=== PATIENT | female | born 1960 | race Caucasian/White ===

== ENCOUNTER 2016-07-06 17:31 | Emergency (ER) | payer SELFPAY ==
[~2016-07-06] VITALS: Ht 170.2 cm; Wt 68.0 kg
[~2016-07-06 17:31] MED LIST: HYDR-971 PO; PRED20TA PO; SULF1TAB24 PO
[2016-07-06 18:18] VITALS: BP 99/61
[2016-07-06] MEDS ORDERED: ONDANSETRON ODT 4 MG TAB.RAPDIS PO ONE (18:45)
[2016-07-06] MEDS ORDERED: ACETAMINOPHEN/CODEINE 300/30MG TABLET PO ONE (18:45)
--- NOTE | 2016-07-06 18:47 | PHYS DOC ---
Past Medical History Past Medical History: Diabetes-Type II, DVT Past Surgical History: Other Additional Past Surgical Histo: right lower arm amputation Alcohol Use: Sober Drug Use: None Adult General Chief Complaint Chief Complaint: EYE PROBLEMS HPI HPI Patient is a 56 year old female who presents with right lower eyelid swelling that began this morning as well as redness. Patient denies any fever. Denies any vision loss. She is also complaining of nausea vomiting and diarrhea since this morning, she states her roommate's son came from out of town with same symptoms. Patient denies any abdominal pain but she states she has cramping. Denies any hematemesis or melena. Review of Systems Review of Systems Constitutional: Denies fever or chills [] Eyes: Right lower eyelid swelling and redness HENT: Denies nasal congestion or sore throat [] Respiratory: Denies cough or shortness of breath [] Cardiovascular: No additional information not addressed in HPI [] GI: Nausea and vomiting and diarrhea] : Denies dysuria or hematuria [] Musculoskeletal: Denies back pain or joint pain [] Integument: Denies rash or skin lesions [] Neurologic: Denies headache, focal weakness or sensory changes [] Endocrine: Denies polyuria or polydipsia [] Current Medications Current Medications Current Medications Medications (Trade) Dose Ordered Sig/Mane Start Time Stop Time Status Last Admin Dose Admin Acetaminophen/ Codeine Phosphate (Tylenol #3) 1 tab 1X ONCE 07/06/16 18:45 07/06/16 18:46 DC Ondansetron HCl (Zofran Odt) 4 mg 1X ONCE 07/06/16 18:45 07/06/16 18:46 DC Allergies Allergies Allergies Coded Allergies Type Severity Reaction Last Updated Verified No Known Drug Allergies 01/23/16 No Physical Exam Physical Exam Constitutional: Well developed, well nourished, no acute distress, non-toxic appearance. [] HENT: Normocephalic, atraumatic, bilateral external ears normal, oropharynx moist, no oral exudates, nose normal. [] Eyes: PERRLA, EOMI, right lower eyelid medial aspect with a small stye, with redness around this stye and small amount of drainage noted around the stye. This no fluctuance in the stye Neck: Normal range of motion, no tenderness, supple, no stridor. [] Cardiovascular:Heart rate regular rhythm, no murmur [] Lungs & Thorax: Bilateral breath sounds clear to auscultation [] Abdomen: Bowel sounds normal, soft, no tenderness, no masses, no pulsatile masses. [] Skin: Warm, dry, no erythema, no rash. [] Back: No tenderness, no CVA tenderness. [] Extremities: No tenderness, no cyanosis, no clubbing, ROM intact, no edema. [] Neurologic: Alert and oriented X 3, normal motor function, normal sensory function, no focal deficits noted. [] Psychologic: Affect normal, judgement normal, mood normal. [] Current Patient Data Vital Signs Vital Signs Date Time Temp Pulse Resp B/P Pulse Ox O2 Delivery O2 Flow Rate FiO2 07/06/16 18:18 98.4 106 20 99/61 98 Room Air 98.4 EKG EKG [] Radiology/Procedures Radiology/Procedures [] Course & Med Decision Making Course & Med Decision Making Pertinent Labs and Imaging studies reviewed. (See chart for details) Patient is in the ED with a stye to the right lower eyelid as well as redness to the eyelid, discharged with erythromycin ointment. Instructed to keep the area clean and dry, warm compresses recommended to the stye. Patient also has nausea vomiting and diarrhea that is viral in nature, she states another house member has similar symptoms. She appears well otherwise. Her BP was 99/66, patient states her BP runs low chronically and her heart rate runs in the 100s. She was discharged with promethazine. Instructed to push fluids maintain good hand hygiene. Instructed to return to the ED for any concerning symptoms otherwise follow-up with her own PCP next week. Dragon Disclaimer Dragon Disclaimer This electronic medical record was generated, in whole or in part, using a voice recognition dictation system. Departure Departure Impression: Primary Impression: Nausea vomiting and diarrhea Additional Impression: Stye external Disposition: 01 HOME, SELF-CARE Condition: STABLE Referrals: NO PCP (PCP) Follow-up with your own doctor next week Patient Instructions: Diarrhea, Nausea and Vomiting, Sty Additional Instructions: You were seen for left eye sty. Please use the prescribed eye ointment as ordered. You diarrhea or vomiting up probably viral, maintain good hand hygiene , push fluids. Take the prescribed medicines as needed. Come back to the emergency room for any concerning symptoms otherwise follow-up with your doctor next week. Scripts Tramadol Hcl/Acetaminophen (Ultracet Tablet)1 Each Tablet1 Tab PO Q6HRS #30 TAB Prov:SURINDER OCAMPO APRN 07/06/16 Promethazine Hcl 25 Mg Tablet1 Tab PO PRN Q6HRS #20 TAB Prov:SURINDER OCAMPO APRN 07/06/16 Erythromycin Base (Erythromycin)3.5 Gm Oint...g.1 Avi EACHEYE Q4HRS W/A #3.5 GM Prov:SURINDER OCAMPO APRN 07/06/16 Problem Qualifiers Additional Impression: Stye external Laterality: right Eyelid: lower Qualified Code: H00.012 - Hordeolum externum right lower eyelid SURINDER OCAMPO APRN Jul 06, 2016 18:47
[2016-07-06] MEDS ORDERED: PROM25TA10 PO (18:54)
[2016-07-06] MEDS ORDERED: TRAM1TAB49 PO (18:54)
[2016-07-06] MEDS ORDERED: ERYT1OIN6 EACHEYE (18:54)
== END 2016-07-06 19:00 | disposition home or self-care (01) ==
LOC: ER 17:31
DX: H00.012 Hordeolum externum right lower eyelid (principal); R11.2 Nausea with vomiting, unspecified; R19.7 Diarrhea, unspecified; E11.9 Type 2 diabetes mellitus without complications; Z86.718 Personal history of other venous thrombosis and embolism; Z89.211 Acquired absence of right upper limb below elbow
CPT/HCPCS: 99283; Q0162

== ENCOUNTER 2016-07-11 11:11 | Emergency (ER) | payer SELFPAY ==
[~2016-07-11] VITALS: Ht 172.7 cm; Wt 68.0 kg
[~2016-07-11 11:11] MED LIST changes: +ERYT1OIN6 EACHEYE; +PROM25TA10 PO; +TRAM1TAB49 PO
[2016-07-11 11:45] VITALS: BP 126/61
--- NOTE | 2016-07-11 11:52 | PHYS DOC ---
Past Medical History Past Medical History: Diabetes-Type II, DVT Past Surgical History: Other Additional Past Surgical Histo: right lower arm amputation Alcohol Use: Sober Drug Use: None Adult General Chief Complaint Chief Complaint: EYE PROBLEMS HPI HPI Patient is a 56 year old female presents emergency Department today with complaint of ongoing right eye redness pain and swelling to the upper lid. Patient was seen here 5 days ago and prescribed erythromycin eye ointment. She states that a friend of hers during the prescriptions and then she was told the srivastava of the medication and it was cost prohibitive. Patient also has an additional complaint of atraumatic right ear pain. She states that she does use Q-tips. She denies any foreign objects or foreign object sensation in her ear. She denies any drainage from her ear. Patient states that the nausea and vomiting settled down and she has no concerns for that. Review of Systems Review of Systems Constitutional: Denies fever or chills [] Eyes: Denies change in visual acuity, redness, or eye pain [] HENT: Denies nasal congestion or sore throat [] Respiratory: Denies cough or shortness of breath [] Cardiovascular: No additional information not addressed in HPI [] GI: Denies abdominal pain, nausea, vomiting, bloody stools or diarrhea [] : Denies dysuria or hematuria [] Musculoskeletal: Denies back pain or joint pain [] Integument: Denies rash or skin lesions [] Neurologic: Denies headache, focal weakness or sensory changes [] Endocrine: Denies polyuria or polydipsia [] Allergies Allergies Allergies Coded Allergies Type Severity Reaction Last Updated Verified No Known Drug Allergies 01/23/16 No Physical Exam Physical Exam Constitutional: Well developed, well nourished, no acute distress, non-toxic appearance. HENT: Normocephalic, atraumatic, bilateral external ears normal, oropharynx moist, no oral exudates, nose normal. Right external ear canal is excoriated. There is no purulent drainage or swelling. Tympanic membrane is normal in appearance. There is no evidence of mastoiditis. Eyes: Right upper lid with obvious stye. There is mild surrounding erythema and swelling. EOMs are intact and 6 cardinal positions of gaze. Tear film is clear. Anterior chamber is deep, clear and quiet. Neck: Normal range of motion, no tenderness, supple, no stridor. [] Cardiovascular:Heart rate regular rhythm, no murmur [] Lungs & Thorax: Bilateral breath sounds clear to auscultation [] Abdomen: Bowel sounds normal, soft, no tenderness, no masses, no pulsatile masses. [] Skin: Warm, dry, no erythema, no rash. [] Back: No tenderness, no CVA tenderness. [] Extremities: No tenderness, no cyanosis, no clubbing, ROM intact, no edema. [] Neurologic: Alert and oriented X 3, normal motor function, normal sensory function, no focal deficits noted. [] Psychologic: Affect normal, judgement normal, mood normal. [] EKG EKG [] Radiology/Procedures Radiology/Procedures [] Course & Med Decision Making Course & Med Decision Making Patient requested a pain pill here she has not been known to have her ears filled due to cost. 50 mg tramadol tablets, which is what she was originally prescribed 5 days ago, was ordered for one tablet by mouth here. Dragon Disclaimer Dragon Disclaimer This electronic medical record was generated, in whole or in part, using a voice recognition dictation system. Departure Departure Impression: Primary Impression: Stye external Additional Impression: Otitis externa Disposition: HOME, SELF-CARE Condition: Referrals: NO PCP (PCP) Patient Instructions: Otitis Externa, [id number], Sty Additional Instructions: 1. You do not have an infection in your right ear. The right ear canal is irritated and inflamed. Do not insert anything into your right ear canal. The right eardrum is normal. 2. Be sure to get the medication filled and take it as prescribed. 3. Use the pamphlet that was provided to you for assistance in establishing follow-up care with a primary care doctor. Problem Qualifiers PAUL PRATHER Jul 11, 2016 11:52
[2016-07-11] MEDS ORDERED: TRAMADOL 50 MG TABLET. PO ONE (12:00)
== END 2016-07-11 12:05 | disposition home or self-care (01) ==
LOC: ER 11:11
DX: H00.011 Hordeolum externum right upper eyelid (principal); H60.91 Unspecified otitis externa, right ear; E11.9 Type 2 diabetes mellitus without complications; R11.2 Nausea with vomiting, unspecified; Z86.718 Personal history of other venous thrombosis and embolism
CPT/HCPCS: 99283